=== PATIENT | female | born 1980 | race Caucasian/White ===

== ENCOUNTER → 2017-02-01 | Outpatient (CLI) | payer OTHER | LOC: FIMAGING 13:48 | PROVIDERS: ATTEND Obstetrics & Gynecology | DX: N92.0 Excessive and frequent menstruation with regular cycle (principal) ==

== ENCOUNTER → 2017-11-02 | Outpatient (CLI) | payer OTHER | LOC: FIMAGING 14:27 | PROVIDERS: ATTEND Obstetrics & Gynecology | DX: O09.521 Supervision of elderly multigravida, first trimester (principal); Z3A.12 12 weeks gestation of pregnancy ==

== ENCOUNTER → 2017-12-25 | Outpatient (CLI) | payer OTHER | LOC: FIMAGING 13:35 | PROVIDERS: ATTEND Obstetrics & Gynecology | DX: O09.522 Supervision of elderly multigravida, second trimester (principal); Z3A.19 19 weeks gestation of pregnancy ==

== ENCOUNTER → 2018-01-23 | Outpatient (CLI) | payer OTHER | LOC: FIMAGING 15:11 | PROVIDERS: ATTEND Obstetrics & Gynecology | DX: O09.522 Supervision of elderly multigravida, second trimester (principal); Z3A.23 23 weeks gestation of pregnancy ==

== ENCOUNTER 2018-05-10 00:02 | Inpatient (IN) | payer OTHER ==
[2018-05-10] MEDS ORDERED: EPSOM SALT 454 GM TP PRN (00:18)
[2018-05-10] MEDS ORDERED: LIDOCAINE 1% 300 MG/30 ML SDV SC PRN (00:18)
[2018-05-10] MEDS ORDERED: OXYTOCIN/RINGERS LACTATE 1,000 ML IV PRN (00:18)
[2018-05-10] MEDS ORDERED: OLIVE OIL 118 ML BTL MISC PRN (00:18)
[2018-05-10] MEDS ORDERED: TERBUTALINE SULFATE 1 MG/ML VIAL IV PRN (00:18)
[2018-05-10] MEDS ORDERED: IBUPROFEN 600 MG TAB PO PRN (00:18)
[2018-05-10] MEDS ORDERED: MISOPROSTOL 200 MCG TAB PR PRN (00:18)
[2018-05-10] MEDS ORDERED: LR 1,000 ML IV PRN (00:18)
[2018-05-10 01:19] LABS: PLATELET COUNT 255 10^3/uL (150-400)
[2018-05-10] MEDS ORDERED: fentaNYL 100 MCG/2 ML INJ ONE (01:59)
[2018-05-10] MEDS ORDERED: BUPIVACAINE 0.25% 30 ML SDV ONE (02:00)
[2018-05-10] MEDS ORDERED: PHENYLEPHRINE HCL 100 MCG/ML SYR ONE (02:00)
[2018-05-10] MEDS ORDERED: PHENYLEPHRINE HCL 100 MCG/ML SYR IVP PRN (02:25)
[2018-05-10] MEDS ORDERED: ONDANSETRON 4 MG/2 ML VIAL IVP PRN (02:25)
--- NOTE | 2018-05-10 02:27 | PREANESOB ---
Obstetric Pre-Anesthesia Info - General Info Proposed Procedure: LILIA : 2 Para: 1 HORACIO: 05/17/18 Gestational Age: 39 week(s) and 0 day(s) - Info Status: Full Term Monitors: External FHR Pattern: Reassuring - Labor Status Cervical Dilation per last OB SVE: 4 Amniotic Fluid Color: Clear PIH: No Magnesium Sulfate in Use: No Indications for Labor Analgesia: Augmentation of Labor Labor Epidural: Proposed Anesthesia Allergies/Adverse Reactions: Allergy/AdvReac Type Severity Reaction Status Date / Time Penicillins Allergy Verified 09/20/15 18:56 reishi mushroom [mushrooms] Allergy Verified 09/20/15 18:56 SEAFOOD Allergy Uncoded 09/20/15 18:56 SEAWEED Allergy Uncoded 09/20/15 18:56 STEROID Allergy Uncoded 09/20/15 18:56 Home Medications: Medication Instructions Recorded Folic Acid [Folic Acid 1 MG (*)] 1 mg PO DAILY 06/21/16 Vit27&Calcium/Iron/FA 1 each PO DAILY 06/21/16 [] Hydrocodone/APAP 5/325 [[place] 1 - 2 tab PO Q4 PRN #30 tab 06/28/16 5/325 (*)] Ibuprofen [Motrin (*)] 600 mg PO Q6 PRN #40 tab 06/28/16 Visit Medications: Generic Name Dose Route Start Last Admin Trade Name Freq PRN Reason Stop Dose Admin Lactated Ringer's 1,000 mls @ 0 mls/hr 05/10/18 00:18 Lr IV 05/11/18 00:17 PRN PRN SEE PROTOCOL CONDITIONS Protocol Per Protocol Oxytocin/Lactated Ringer's 1,000 mls @ 125 mls/hr 05/10/18 00:18 Pitocin 20 Units/Lr (Premix) IV PRN PRN Post bleeding Fentanyl 200 mcg/ Bupivacaine 124 mls @ 0 mls/hr 05/10/18 02:30 HCl 20 ml/ Sodium Chloride EP 05/20/18 02:29 CONT SOO Protocol As Directed Ibuprofen 600 mg 05/10/18 00:18 Motrin PO ONCE PRN post , pain Lidocaine HCl 300 mg 05/10/18 00:18 Lidocaine Hcl 1% SC 11/06/18 00:17 ONCE PRN episiotomy Magnesium Sulfate 454 gm 06/14/18 00:18 Epsom Salt TP 11/06/18 00:17 Q1H PRN perineal discomfort Misoprostol 800 - 1,000 mcg 05/10/18 00:18 Cytotec LA ONCE PRN Vaginal Atony/Bleeding [place] Oil 118 ml 05/10/18 00:18 Sweet Oil MISC 11/06/18 00:17 ONCE PRN perineal massage Terbutaline Sulfate 0.25 mg 05/10/18 00:18 Brethine IV 11/06/18 00:17 ONCE PRN Tachysystole Discontinued Medications Generic Name Dose Route Start Last Admin Trade Name Malik PRN Reason Stop Dose Admin Bupivacaine HCl Confirm 05/10/18 02:00 Sensorcaine 0.25% Sdv Administered 05/10/18 02:01 Dose 30 ml .ROUTE .STK-MED ONE Fentanyl Confirm 05/10/18 01:59 Sublimaze Administered 05/10/18 02:00 Dose 100 mcg .ROUTE .STK-MED ONE Fentanyl 200 mcg/ Bupivacaine 117.3 mls @ 0 mls/hr 05/10/18 02:30 HCl 13.3 ml/ Sodium Chloride EP 05/20/18 02:29 CONT SOO Protocol As Directed Phenylephrine HCl Confirm 05/10/18 02:00 Neosynephrine Administered 05/10/18 02:01 Dose 1,000 mcg .ROUTE .STK-MED ONE - Anesthesia History Response to Local Anesthetics: Normal Anesthesia & Operative History: No Prior Problems Family Anesthesia History: Not Applicable - Social History Substance Use/Abuse: Denies - Vital Signs Height/Weight (Nursing): Height 170.18 cm Weight 89.358 kg - Focused Exam Neck exam: FROM Mallampati Score: Class 2 Mouth exam: normal dental/mouth exam Pulmonary: no respiratory distress Cardiovascular: regular rate and rhythym Labs: 05/10/18 00:45 Patient ABO/Rh O POSITIVE 05/10/18 00:45 - Plan Consent Signed and on Chart: Yes Patient/Guardian Understands and Agrees to Plan: Yes Urgent/Emergent Case: Feelcia fontanez completed preop but documented later for safe timely pt care
[2018-05-10] MEDS ORDERED: fentaNYL 2MCG/ML/BUP 0.1% RTU 100 ML EP SCH (02:30)
[2018-05-10] MEDS ORDERED: fentaNYL 200 MCG, BUPIVACAINE 0.5% 20 ML in NS 100 ML EP SCH (02:30)
[2018-05-10] MEDS ORDERED: BUPIVACAINE 0.75% EP SCH (02:30)
[2018-05-10] MEDS ORDERED: LR 500 ML IV SCH (02:30)
[2018-05-10] MEDS ORDERED: FENTANYL EP SCH (02:30)
[2018-05-10] MEDS ORDERED: NS EP SCH (02:30)
[2018-05-10] MEDS ORDERED: LIDOCAINE 1% 300 MG/30 ML SDV ONE (02:32)
[2018-05-10] MEDS ORDERED: AMMONIA AROMATIC 1 EACH AMP IH ONE (02:33)
[2018-05-10] MEDS ORDERED: MISOPROSTOL 200 MCG TAB ONE (02:33)
[2018-05-10] MEDS ORDERED: OLIVE OIL 118 ML BTL ONE (02:33)
[2018-05-10] MEDS ORDERED: TERBUTALINE SULFATE 1 MG/ML VIAL ONE (02:33)
[2018-05-10] MEDS ORDERED: OXYTOCIN 10 UNIT/ML VIAL ONE (02:33)
--- NOTE | 2018-05-10 02:46 | GHP ---
[f rep st] PREOP HISTORY AND PHYSICAL DATE OF ADMISSION: 05/10/2018 ADMISSION DIAGNOSES: 1. Intrauterine at 39 weeks gestation. 2. Active labor. INDICATIONS: Patient is a 38-year-old 2, para 1-0-0-1 at 39 weeks gestation. Her estimated date of confinement is 05/17/2018, dated by last menstrual period consistent with a 1st-trimester ultrasound. The patient received care with [facility]. She was going to be transferred to [facility] tomorrow and has an appointment scheduled. However, she progressed into active labor tonight and presented to [facility] for delivery. The patient received care with [facility] with her last ; however, was delivered by our practice due to shared call. 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 PAST MEDICAL HISTORY: Significant for history of colon ulcers in her 20s, history of abnormal Pap smears, history of vitamin B12 deficiency. MEDICATIONS: vitamins. SURGICAL HISTORY: None. ALLERGIES: Penicillin, which causes GI upset and rash. SOCIAL HISTORY: Patient is . She lives with her and their 1st child. She denies tobacco, alcohol, or drug use. FAMILY MEDICAL HISTORY: Noncontributory. OBSTETRIC/GYNECOLOGIC HISTORY: She is 2, para 1-0-0-1. In 05/2016, she had a spontaneous vaginal delivery. She presented in active labor. The labor course was complicated by difficulties getting the epidural, and baby delivered with nuchal cord x2. Otherwise, and delivery were uncomplicated. Current has been uncomplicated. She initiated care at [facility] in the 1st trimester. Patient does have a history of abnormal Pap smears and colposcopies, but no procedures were done on her cervix. PHYSICAL EXAMINATION: VITAL SIGNS: Stable. GENERAL APPEARANCE: Alert and oriented x3. HEART: Rate is regular, regular. LUNGS: Clear to auscultation bilaterally. ABDOMEN: Gravid, nondistended, nontender. EXTREMITIES: Reveal no calf tenderness or edema. NEURO: Grossly intact. PSYCH: Appropriate affect. MUSCULOSKELETAL: Grossly intact. Cervical exam, she was 3-4 cm dilated, 100% effaced, and -2 station. She spontaneously ruptured upon arriving to Labor and Delivery. LABS: Blood type O positive. Antibody screen negative. Rubella immune. HBsAg negative. Her 50 g glucose was 93. Her group beta strep culture was negative. REVIEW OF SYSTEMS: A 10-point review of systems is negative with exception of the above-mentioned pertinent positives. ASSESSMENT AND PLAN: A 38-year-old 2, para 1-0-0-1 who is 39 weeks gestation who arrived in active labor. The patient is requesting epidural. /[id number]/MODL MTDD
--- NOTE | 2018-05-10 03:01 | OBPROG ---
Labor Progress Note Assessment/Plan: Assessment: Plan: Subjective/Intrapartum Course: 05/10/18 02:57 patient got epidural but it did not work. rapid progress to complete. AROM at complete. large amount of clear fluid. pushed x 4 contractions. fhts in 70's. delivered over an intact perineum. Objective: 05/10/18 00:45 Patient ABO/Rh O POSITIVE 05/10/18 00:45 - SVE Dilation (cm): 10 Effacement (%): 100 Station: +3 Membranes: AROM Amniotic Fluid Color: Clear Dilation Complete Date: 05/10/18 - Contraction Pattern Assessment Current Contraction Pattern: Regular - FHR Assessment Dent FHR Pattern Variability: Moderate FHR Category: 1 - Procedures Non-surgical Procedures: Amniotomy - AP Antepartum Course: 05/10/18 02:59 [facility] delivered by fede spain when we shared call. current initiated care with [facility]. planned to transfer to [facility] (has appointment in am) but came in in active labor. initiated care in first trimester. uncomplicated . Oxytocin Orders Assessment - Pre-Induction/Augmentation Assessment Gestational Age: 39 week(s) and 0 day(s) ICD10 Worksheet Patient Problems: Problems Problem Status Onset Normal labor Acute
--- NOTE | 2018-05-10 03:04 | OBDEL ---
Info Type: Vaginal Presentation at Delivery: Vertex L&D Analgesia/Anesthesia Type: Epidural (did not work) GBS+: No Intrapartum Medications: Generic Name Dose Route Start Last Admin Trade Name Malik PRN Reason Stop Dose Admin Lactated Ringer's 1,000 mls @ 0 mls/hr 05/10/18 00:18 05/10/18 00:47 Lr IV 05/11/18 00:17 1,000 mls PRN PRN Administration SEE PROTOCOL CONDITIONS Protocol Per Protocol Lactated Ringer's 500 mls @ 0 mls/hr 05/10/18 02:30 05/10/18 02:31 Lr IV 11/06/18 02:29 500 mls CONT SOO Administration As Directed - Hospital Course Intrapartum: 05/10/18 02:57 patient got epidural but it did not work. rapid progress to complete. AROM at complete. large amount of clear fluid. pushed x 4 contractions. fhts in 70's. delivered over an intact perineum. Indications for Delivery: Spontaneous Labor Vaginal Delivery - Delivery Provider Delivery Physician/CNM: Li Avery - Labor and Delivery Onset of Contractions Date: 05/09/18 Onset of Contractions Time: 21:00 Onset of Contractions Type: Spontaneous Rupture of Membranes Date: 05/10/18 Rupture of Membranes Time: 01:10 Rupture of Membranes Type: Artificial Amniotic Fluid Color: Clear Dilation Complete Date: 05/10/18 Dilation Complete Time: 02:40 Placenta Delivery Date: 05/10/18 Placenta Delivery Time: 02:49 Total Hours of Labor: 5 Non-surgical Procedures: Amniotomy Vaginal Sponge Count Correct: Yes Vaginal Needle Count Correct: Yes Vaginal Sweep Performed: Yes Delivery Events: Nuchal Cord (x2) Delivery Comment: arrived in active labor. anesthesia placed epidural which did not work. rapid progress to complete. arom at complete. pushed x 4 contractions. Data HORACIO: 05/17/18 Gestational Age: 39 week(s) and 4 day(s) Dent Delivery Date: 05/10/18 Delivery Time: 02:43 Sex of : Male Score (1 Min): 8 Score (5 Min): 9 ICD10 Worksheet Patient Problems: Problems Problem Status Onset Dizziness Acute state Acute Shortness of breath Acute Symptomatic bradycardia Acute Delivery normal Acute Normal labor Acute - ICD10 Problem Qualifiers (1) Delivery normal
--- NOTE | 2018-05-10 03:17 | POSTANESTH ---
Post Anesthetic Evaluation Cardiovascular Status: Normal, Stable, Tx Over/Under Hydration Level of Consciousness/Mental Status: Can Participate in Eval Pain Control: Adequate, Prn Tx Ordered Nausea/Vomiting Control: Adequate, Prn Tx Ordered Complications Possibly Related to Anesthesia: None Noted (epidural d/c'd)
[2018-05-10] MEDS: IBUPROFEN 600 MG TAB PO PRN ×3 (09:00→22:16)
[2018-05-10] MEDS ORDERED: IBUPROFEN 600 MG TAB PO ONE (09:13)
[2018-05-10] MEDS ORDERED: DOCUSATE SODIUM 100 MG CAP PO PRN (10:46)
[2018-05-10] MEDS ORDERED: HYDROCORTISONE 0.5% CREAM TP PRN (10:46)
[2018-05-10] MEDS ORDERED: SIMETHICONE 80 MG TAB CHEW PO PRN (10:46)
[2018-05-10] MEDS: HYDROCODONE/APAP 5/325 TAB PO PRN ×3 (11:14→19:36)
--- NOTE | 2018-05-10 14:51 | POSTANESTH ---
Post Anesthetic Evaluation Cardiovascular Status: Normal, Stable Respiratory Status: Normal, Stable Level of Consciousness/Mental Status: Can Participate in Eval Pain Control: Adequate, Prn Tx Ordered Nausea/Vomiting Control: Adequate, Prn Tx Ordered Complications Possibly Related to Anesthesia: None Noted (pt had incomplete epidural anesthesia R>L, ambulating ok today, no apparent complications)
[2018-05-10] MEDS ORDERED: PROCHLORPERAZINE MALEATE 10 MG TAB PO PRN (21:12)
--- NOTE | 2018-05-10 21:12 | OBPP ---
Progress Note Assessment/Plan: Assessment: 38yo s/p VSS PPD#0 Dizziness headache Plan: rx compazine ordered CBC/CMP/EKG ordered encouraged pt to cont hydrating, add electrolyte replacement reassess PRN 05/10/18 21:51 Subjective/ Course: 05/10/18 21:47 Pt doing ok- states she does not feel great. Reports +dizziness, that is improving. She reports having episodes of chest pain x2 days. She denies any SOB , epigastric pain. She states she felt like she may "pass out". She reports having headaches all day today. She has not had complete relief with ibuprofen and norco. She denies any heavy bleeding. Objective: 05/10/18 00:45 Patient ABO/Rh O POSITIVE 05/10/18 00:45 Temp Pulse Resp BP Pulse Ox 36.1 C 77 16 103/67 05/10/18 15:44 05/10/18 15:44 05/10/18 15:44 05/10/18 15:44 Uterine Position/Fundal Height: Umbilicus -1, Midline Uterine Tone: Firm Physical Exam - Physical Exam General Appearance: WD/WN, alert, no apparent distress Respiratory: chest non-tender, lungs clear, normal breath sounds Cardiac/Chest: regular rate, rhythm Abdomen: non-tender, soft Extremities: non-tender Skin: normal color, warm/dry Neuro/Psych: alert, normal mood/affect, oriented x 3
--- NOTE | 2018-05-10 21:54 | CPEKG ---
Heart Rate: 61 RR Interval: 984 P-R Interval: 160 QRSD Interval: 96 QT Interval: 388 QTC Interval: 391 P [place]: 23 QRS [place]: 50 T Wave [place]: 52 EKG Severity - NORMAL ECG - EKG Impression: SINUS RHYTHM Electronically Signed By: Tone Grant 11-May-2018 17:12:59
[2018-05-11] MEDS: ACETAMINOPHEN 325 MG TAB PO PRN ×2 (01:32→12:58)
[2018-05-11] MEDS ORDERED: CYCLOBENZAPRINE 10 MG TAB PO PRN (02:13)
[2018-05-11] MEDS: IBUPROFEN 600 MG TAB PO PRN (04:15)
--- NOTE | 2018-05-11 11:14 | OBPP ---
Progress Note Assessment/Plan: Assessment: 1) s/p PPD # 1 - pt is stable 2) Anemia - pt is asymptomatic Plan: Continue routine pp care Will start Bifera BID Plan for d/c home in am 16 05/11/18 11:12 Subjective/ Course: 05/10/18 21:47 Pt doing ok- states she does not feel great. Reports +dizziness, that is improving. She reports having episodes of chest pain x2 days. She denies any SOB , epigastric pain. She states she felt like she may "pass out". She reports having headaches all day today. She has not had complete relief with ibuprofen and norco. She denies any heavy bleeding. 05/11/18 11:13 Pt seen and examined. Doing much better-no further HAs, dizziness or CP. Some mild cramping, controlled with Motrin. None this am. Mod lochia. She is OOB, ella regular diet, voiding and passing flatus. No BM yet. BF well so far. Objective: 05/10/18 21:30 05/10/18 21:30 Patient ABO/Rh O POSITIVE 05/10/18 00:45 Total Bilirubin 0.4 mg/dL (0.1-1.4) 05/10/18 21:30 AST 32 IU/L (14-46) 05/10/18 21:30 ALT 28 IU/L (9-52) 05/10/18 21:30 Temp Pulse Resp BP Pulse Ox 36.7 C 71 16 107/72 94 05/11/18 08:00 05/11/18 08:00 05/11/18 08:00 05/11/18 08:00 05/11/18 03:30 Uterine Position/Fundal Height: Umbilicus -2 Uterine Tone: Firm Physical Exam - Physical Exam General Appearance: WD/WN, alert, no apparent distress Respiratory: lungs clear, normal breath sounds Cardiac/Chest: regular rate, rhythm Abdomen: normal bowel sounds, non-tender, soft, flatus (+) Extremities: non-tender, normal inspection Skin: normal color, warm/dry Neuro/Psych: alert, normal mood/affect, oriented x 3
[2018-05-11] MEDS: IRON POLYSAC/IRON HEME 28 MG TAB PO SCH ×2 (13:02→22:41)
[2018-05-12 08:57] VITALS: BP 109/72
[2018-05-12] MEDS: IRON POLYSAC/IRON HEME 28 MG TAB PO SCH (09:11)
--- NOTE | 2018-05-12 10:19 | OBGCSDC ---
General Delivery Information - General Info : 2 Para: 2 Abortions: 0 Type: Vaginal L&D Analgesia/Anesthesia Type: Epidural Admission Date: 05/10/18 Labs: Patient ABO/Rh O POSITIVE 05/10/18 00:45 Hct 35.5 % (38.0-47.0) L 05/10/18 21:30 - Hospital Course Antepartum: 05/10/18 02:59 [facility]. delivered by fede spain when we shared call. current initiated care with [facility]. planned to transfer to [facility] (has appointment in am) but came in in active labor. initiated care in first trimester. uncomplicated . Intrapartum: 05/10/18 02:57 patient got epidural but it did not work. rapid progress to complete. AROM at complete. large amount of clear fluid. pushed x 4 contractions. fhts in 70's. delivered over an intact perineum. : 05/10/18 21:47 Pt doing ok- states she does not feel great. Reports +dizziness, that is improving. She reports having episodes of chest pain x2 days. She denies any SOB , epigastric pain. She states she felt like she may "pass out". She reports having headaches all day today. She has not had complete relief with ibuprofen and norco. She denies any heavy bleeding. 05/11/18 11:13 Pt seen and examined. Doing much better-no further HAs, dizziness or CP. Some mild cramping, controlled with Motrin. None this am. Mod lochia. She is OOB, ella regular diet, voiding and passing flatus. No BM yet. BF well so far. 05/12/18 10:16 S) Pt doing well, reports min pain and bleeding. she is ambulating and voiding without difficulty. She is . She desires discharge home today. O) VSS, afebrile, no concerns - no headaches constitutional: WNWF, A&Ox3 HEENT: normocephalic, atraumatic, supple Heart: RRR, No murmur Chest: CTA-B Abdomen: Soft, nontender Uterus: Firm at U-2 Lochia: Minimal rubra Perineum: Intact, healing well Extremities: Trace edema, and negative Blake's sign Neuro: Grossly normal A) 38 year-old S/P PPD#2 P) Discharge home today Continue Pelvic rest x6wks Discussed danger signs (infection, preeclampsia, depression, heavy bleeding, etc) RTO in 2/4/6 weeks 05/12/18 10:18 Vaginal - Delivery Provider Delivery Physician/CNM: Li Spain - Diagnosis Labor: Spontaneous Rupture of Membranes Type: Artificial Amniotic Fluid Color: Clear Delivery Events: Nuchal Cord (x2) - Procedures Non-surgical Procedures: Amniotomy - Delivery Non-surgical Procedures: Amniotomy Data HORACIO: 05/17/18 Gestational Age: 39 week(s) and 2 day(s) Dent Delivery Date: 05/10/18 Delivery Time: 02:43 Sex of : Male Weight (gm): 3620 g Score (1 Min): 8 Score (5 Min): 9 Discharge Information - Discharge Information Prescriptions: Iron Polysacch/Iron Heme Polyp [Bifera] 28 mg PO DAILY #60 tab Condition: Good
== END 2018-05-12 10:40 | disposition home or self-care (01) | DRG 775 ==
LOC: OBSVTOIN 00:02 → FLD 00:02 → FOB 06:30
PROVIDERS: ADMIT Obstetrics & Gynecology; ATTEND Obstetrics & Gynecology
PROC: 10907ZC Drainage of Amniotic Fluid, Therapeutic from Products of Conception, Via Natural or Artificial Opening (ICD-10-PCS; principal; 2018-05-10)
PROC: 10E0XZZ Delivery of Products of Conception, External Approach (ICD-10-PCS; principal; 2018-05-10)
DX: O69.81X0 Labor and delivery complicated by cord around neck, without compression, not applicable or unspecified (principal); O90.81 Anemia of the puerperium; Z3A.39 39 weeks gestation of pregnancy; Z37.0 Single live birth
CPT/HCPCS: J1200; J2370; J2405; J2590; J3010; J3105

== ENCOUNTER 2018-05-14 00:19 | Observation (INO) | payer OTHER ==
--- NOTE | 2018-05-14 00:45 | CPEKG ---
Heart Rate: 65 RR Interval: 923 P-R Interval: 172 QRSD Interval: 86 QT Interval: 392 QTC Interval: 408 P [place]: 20 QRS [place]: 44 T Wave [place]: 49 EKG Severity - NORMAL ECG - EKG Impression: SINUS RHYTHM Electronically Signed By: Linda Ling 14-May-2018 05:47:23
[2018-05-14 01:00] LABS: PLATELET COUNT 290 10^3/uL (150-400)
--- NOTE | 2018-05-14 01:40 | EDPHY ---
H & P Stated Complaint: SOB, dizzy, bilateral leg tingling x1 hour Time Seen by Provider: 05/14/18 01:26 HPI/ROS: HPI The patient presents with shortness of breath. The patient is 4 days from a normal spontaneous vaginal delivery. Her was uncomplicated. While in the hospital, she had 1 episode of shortness of breath and chest pains which occurred while lying flat on the 1st day. Since her discharge from the hospital yesterday she has had similar episodes. When she recalls, she realizes that the episodes usually occur while lying flat and cause shortness of breath and the sensation that she cannot catch her breath. They are associated with generally feeling ill and dizzy. She has a woken from sleep, feeling as if she is choking. An episode occurred tonight while she was trying to go to sleep, now her symptoms have mostly resolved. These are associated often with tingling in her arms and legs bilaterally. She generally feels hot. She denies any dyspnea on exertion. She recalls 1 episode about 2 weeks ago which was similar. She does not have any lower extremity edema. REVIEW OF SYSTEMS Constitutional: No fever, no chills. Eyes: No discharge. ENT: No sore throat. Cardiovascular: No chest pain, no palpitations. Respiratory: No cough, positive for shortness of breath. Gastrointestinal: No abdominal pain, no vomiting. Genitourinary: No hematuria. Musculoskeletal: No back pain. Skin: No rashes. Neurological: No headache. PMHx: , 4 days Soc Hx: Lives at home with her family Family history: Father with AR at age 51 PHYSICAL General Appearance: Alert, no distress Eyes: Pupils equal and round no pallor or injection ENT, Mouth: Mucous membranes moist Respiratory: There are no retractions, lungs are clear to auscultation Cardiovascular: Regular rate and rhythm Gastrointestinal: Abdomen is soft and non-tender, no masses, bowel sounds normal Neurological: A&O, moves all extremities Skin: Warm and dry, no rashes Musculoskeletal: Neck is supple non tender Extremities: symmetrical, full range of motion Psychiatric: Patient is oriented X 3, there is no agitation Source: Patient Exam Limitations: No limitations - Personal History Current Tetanus/Diphtheria Vaccine: Yes Tetanus Vaccine Date: 04/2015 - Medical/Surgical History Hx Asthma: No Hx Chronic Respiratory Disease: No Hx Diabetes: No Hx Cardiac Disease: No Hx Renal Disease: No Hx Cirrhosis: No Hx Alcoholism: No Hx HIV/AIDS: No Hx Splenectomy or Spleen Trauma: No Other PMH: COLPOSCOPY 2006, NVSD 2016 - Social History Smoking Status: Never smoked Constitutional: Initial Vital Signs Temperature (C) 36.4 C 05/14/18 00:26 Heart Rate 69 05/14/18 00:26 Respiratory Rate 16 05/14/18 00:26 Blood Pressure 108/78 05/14/18 00:26 O2 Sat (%) 97 05/14/18 00:26 O2 Delivery Mode Room Air Allergies/Adverse Reactions: Penicillins Allergy (Verified 09/20/15 18:56) reishi mushroom [mushrooms] Allergy (Verified 09/20/15 18:56) SEAFOOD Allergy (Uncoded 09/20/15 18:56) SEAWEED Allergy (Uncoded 09/20/15 18:56) STEROID Allergy (Uncoded 09/20/15 18:56) Home Medications: Medication Instructions Recorded Iron Polysacch/Iron Heme Polyp 28 mg PO DAILY #60 tab 05/12/18 [Bifera] Medical Decision Making - Diagnostics EKG Interpretation: EKG: Complete interpretation has been separately recorded in the [email or web address] archive. Summary impression: Normal sinus rhythm Imaging Results: Chest x-ray two views shows no cardiomegaly, no pleural effusion, interpreted by me, radiology interpretation is pending. Differential Diagnosis: This is a 38-year-old , 4 days from a normal spontaneous vaginal delivery who presents from home with episodes of shortness of breath associated with general malaise, dizziness, paresthesias in her arms and legs. On exam, she has normal vital signs and is generally well-appearing. Differential diagnosis includes cardiomyopathy, pulmonary embolism, GERD, vasovagal episode. No hypertension or headache make preeclampsia or eclampsia unlikely. Plan for basic lab testing, chest x-ray, EKG. In the emergency department, labs were checked, D-dimer was slightly elevated though I attribute this to state. BNP is also slightly elevated, however unclear clinical significance in the setting of normal chest x-ray and EKG. Other labs were normal. The patient did have worsening symptoms when her heart rate was below 50. On telemetry monitoring here she always maintained a sinus rhythm without any signs of heart block or arrhythmia. I consulted with Dr. Cid of OBGYN. We have decided to admit the patient to the hospital for ongoing cardiac monitoring and further evaluation with possibly echocardiogram. I have consulted with the hospitalist Dr. Fragoso and we will admit the patient to the Internal Medicine service with OBGYN following. I have ordered the patient a bed in the hospital. - Data Points Laboratory Results: Laboratory Results 05/14/18 00:54 05/14/18 00:54 05/14/18 05/14/18 05/14/18 01:38 00:58 00:58 WBC RBC Hgb Hct MCV MCH MCHC RDW Plt Count MPV Neut % (Auto) Lymph % (Auto) Millard % (Auto) Eos % (Auto) Baso % (Auto) Nucleat RBC Rel Count Absolute Neuts (auto) Absolute Lymphs (auto) Absolute Monos (auto) Absolute Eos (auto) Absolute Basos (auto) Absolute Nucleated RBC Immature Gran % Immature Gran # D-Dimer 0.56 ug/mLFEU H ug/mLFEU (0.00-0.50) Sodium Potassium Chloride Carbon Dioxide Anion Gap BUN Creatinine Estimated GFR Glucose Calcium Total Bilirubin 0.7 mg/dL mg/dL (0.1-1.4) Conjugated Bilirubin 0.4 mg/dL mg/dL (0.0-0.5) Unconjugated Bilirubin 0.3 mg/dL mg/dL (0.0-1.1) AST 40 IU/L IU/L (14-46) ALT 38 IU/L IU/L (9-52) Alkaline Phosphatase 118 IU/L IU/L (38-126) POC Troponin I 0.01 ng/mL ng/mL (0.00-0.08) NT-Pro-B Natriuret Pep 164 pg/mL H pg/mL (0-125) Total Protein 6.2 g/dL L g/dL (6.3-8.2) Albumin 3.4 g/dL L g/dL (3.5-5.0) TSH 05/14/18 05/14/18 05/14/18 00:54 00:54 00:54 WBC 10.32 10^3/uL H 10^3/uL (3.80-9.50) RBC 4.00 10^6/uL L 10^6/uL (4.18-5.33) Hgb 12.6 g/dL g/dL (12.6-16.3) Hct 37.5 % L % (38.0-47.0) MCV 93.8 fL fL (81.5-99.8) MCH 31.5 pg pg (27.9-34.1) MCHC 33.6 g/dL g/dL (32.4-36.7) RDW 13.0 % % (11.5-15.2) Plt Count 290 10^3/uL 10^3/uL (150-400) MPV 9.3 fL fL (8.7-11.7) Neut % (Auto) 61.8 % % (39.3-74.2) Lymph % (Auto) 30.2 % % (15.0-45.0) Millard % (Auto) 4.7 % % (4.5-13.0) Eos % (Auto) 2.4 % % (0.6-7.6) Baso % (Auto) 0.6 % % (0.3-1.7) Nucleat RBC Rel Count 0.0 % % (0.0-0.2) Absolute Neuts (auto) 6.38 10^3/uL 10^3/uL (1.70-6.50) Absolute Lymphs (auto) 3.12 10^3/uL H 10^3/uL (1.00-3.00) Absolute Monos (auto) 0.48 10^3/uL 10^3/uL (0.30-0.80) Absolute Eos (auto) 0.25 10^3/uL 10^3/uL (0.03-0.40) Absolute Basos (auto) 0.06 10^3/uL 10^3/uL (0.02-0.10) Absolute Nucleated RBC 0.00 10^3/uL 10^3/uL (0-0.01) Immature Gran % 0.3 % % (0.0-1.1) Immature Gran # 0.03 10^3/uL 10^3/uL (0.00-0.10) D-Dimer Sodium 142 mEq/L mEq/L (135-145) Potassium 3.8 mEq/L mEq/L (3.3-5.0) Chloride 110 mEq/L mEq/L (97-110) Carbon Dioxide 19 mEq/l L mEq/l (22-31) Anion Gap 13 mEq/L mEq/L (8-16) BUN 14 mg/dL mg/dL (7-23) Creatinine 0.7 mg/dL mg/dL (0.6-1.0) Estimated GFR > 60 Glucose 81 mg/dL mg/dL (70-100) Calcium 9.6 mg/dL mg/dL (8.5-10.4) Total Bilirubin Conjugated Bilirubin Unconjugated Bilirubin AST ALT Alkaline Phosphatase POC Troponin I NT-Pro-B Natriuret Pep Total Protein Albumin TSH 1.490 uIU/mL uIU/mL (0.465-4.680) Point of Care Test Results: Chemistry 05/14/18 01:38 POC Troponin I 0.01 ng/mL ng/mL (0.00-0.08) Departure - Departure Disposition: [facility] Inpatient Acute Clinical Impression: Shortness of breath, Symptomatic bradycardia, Dizziness, state Condition: Fair
[2018-05-14] MEDS ORDERED: IBUPROFEN 200 MG TAB PO PRN (03:36)
--- NOTE | 2018-05-14 04:06 | PDGENHP ---
History and Physical - Chief Complaint Presyncope - History of Present Illness Source-patient provides history and appears reliable. EMR was reviewed and case discussed with ED provider. HPI-this is a very pleasant 38-year-old female with past no significant past medical history who recently delivered a healthy term infant boy she is day 4. Patient presents emergency department with complaints of lightheadedness and low heart rate. Patient has been quite athletic her whole life and reports that her baseline heart rate is generally in the 60s. She states that she has not been as active during this compared to her last and sore heart rate generally has been a little bit higher. Patient denies any chest pain or palpitations. She reports that primarily when she goes to lay flat she becomes lightheaded, shaky, with radiating numbness tingling in her fingers and hands, but overall feeling quite unwell. She reports some nausea with some blurry vision. Patient also notes that during this these episodes she developed some shortness of breath. She does not seem to have any issues or symptoms when she is sitting upright or ambulating. Patient denies any lower extremity edema or calf pain or swelling. She does report that just since her time in the emergency department she did develop a little bit of epigastric sharp intermittent pains worse with palpation but denies any reflux type symptoms. She reports the pain does radiate to her shoulder blades. She did not have this pain previously. Patient does report some lower abdominal stretching type pain she associates with her recent delivery due to muscle soreness. Patient denies any fevers chills. No cough dysuria hematuria. History Information - Allergies/Home Medication List Allergies/Adverse Reactions: Penicillins Allergy (Verified 09/20/15 18:56) reishi mushroom [mushrooms] Allergy (Verified 09/20/15 18:56) SEAFOOD Allergy (Uncoded 09/20/15 18:56) SEAWEED Allergy (Uncoded 09/20/15 18:56) STEROID Allergy (Uncoded 09/20/15 18:56) I have personally reviewed and updated: family history, medical history, social history, surgical history - Surgical History Reports: no pertinent surgical hx - Family History Additional family history: Father-history CAD age 51 status post CABG, HTN, HLD. Paternal grandmother with hypertension. Paternal grandfather with history TX at a young age. Maternal grandmother with history CVA at elderly age in the 90s. - Social History Smoking Status: Never smoked Alcohol Use: None Drug Use: None Additional social history: Patient is and lives with her and 2 children. Cor status-full Review of Systems Review of Systems: ROS: 10pt was reviewed & negative except for what was stated in HPI & below Constitutional: Reports: weakness (Generalized weakness during episodes.). Denies: chills, fever EENMT: Reports: no symptoms Cardiac: Reports: syncope. Denies: chest pain, edema Respiratory: Reports: shortness of breath (During episodes). Denies: cough Gastrointestinal: Reports: abdominal pain (See HPI), nausea. Denies: black stools, rectal bleeding, diarrhea Genitourinary: Reports: no symptoms Muscolosketal: Reports: no symptoms. Denies: calf pain Skin: Reports: no symptoms Neurological: Reports: numbness, tingling (In her fingers and hand), weakness ( Generalized weakness during episode). Denies: headache Hematologic/Lymphatic: Reports: no symptoms. Denies: blood clots Physical Exam Physical Exam: Temp Pulse Resp BP Pulse Ox 36.4 C 78 18 112/87 H 96 05/14/18 00:26 05/14/18 03:30 05/14/18 03:30 05/14/18 03:30 05/14/18 03:30 Selected Entries 05/14/18 05/14/18 00:26 03:59 Blood Pressure Automatic Method Heart Rate 69 Heart Rate [ 78 Sitting] Heart Rate [ 94 Standing] Heart Rate [ 60 Supine] Respiratory 16 Rate O2 Sat (%) 97 Temperature (C) 36.4 C Blood Pressure 108/78 Blood Pressure 129/92 H [Sitting] Blood Pressure 125/83 H [Standing] Blood Pressure 123/75 H [Supine] Mean Arterial 88 Pressure (MAP) O2 Delivery Room Air Mode Blood Pressure Left Source [Sitting Upper ] Arm Blood Pressure Left Source [ Upper Standing] Arm Blood Pressure Left Source [Supine] Upper Arm Temperature Oral Source Heart Rate Heart Rate/ Source [Sitting Monitor ] Heart Rate Heart Rate/ Source [ Monitor Standing] Heart Rate Heart Rate/ Source [Supine] Monitor Constitutional: no apparent distress, appears nourished, not in pain, other ( NAD. Pleasant young adult female is sitting up in bed. and young children at bedside.) Eyes: PERRL, anicteric sclera, EOMI, No scleral injection Ears, Nose, Mouth, Throat: moist mucous membranes, ears appear normal, no oral mucosal ulcers, No poor dentition Cardiovascular: regular rate and rhythym, no murmur, rub, or gallop, No systolic murmur, No edema Peripheral Pulses: 2+: dorsalis-pedis (R), dorsalis-pedis (L) Respiratory: no respiratory distress, no rales or rhonchi, clear to auscultation , No respiratory distress Gastrointestinal: normoactive bowel sounds, no palpable masses, tenderness ( Patient with some minimal on tenderness the epigastric region. There is no rebound or guarding guarding. She also reports some discomfort with palpation on the lateral aspect of her lower abdomen which are relatively unchanged since delivery.) Genitourinary: no bladder tenderness, No solitario in urethra Skin: warm, normal color, no rashes or abrasions Musculoskeletal: full muscle strength, other (Patient sits up independently. Moves all extremities while in gurney.) Neurologic: AAOx3, sensation intact bilaterally, No facial droop Psychiatric: interacting appropriately, not anxious, not encephalopathic, thought process linear Lab Data & Imaging Review 05/14/18 00:54 05/14/18 00:54 WBC 10.32 10^3/uL (3.80-9.50) H 05/14/18 00:54 RBC 4.00 10^6/uL (4.18-5.33) L 05/14/18 00:54 Hgb 12.6 g/dL (12.6-16.3) 05/14/18 00:54 Hct 37.5 % (38.0-47.0) L 05/14/18 00:54 MCV 93.8 fL (81.5-99.8) 05/14/18 00:54 MCH 31.5 pg (27.9-34.1) 05/14/18 00:54 MCHC 33.6 g/dL (32.4-36.7) 05/14/18 00:54 RDW 13.0 % (11.5-15.2) 05/14/18 00:54 Plt Count 290 10^3/uL (150-400) 05/14/18 00:54 MPV 9.3 fL (8.7-11.7) 05/14/18 00:54 Neut % (Auto) 61.8 % (39.3-74.2) 05/14/18 00:54 Lymph % (Auto) 30.2 % (15.0-45.0) 05/14/18 00:54 [place] % (Auto) 4.7 % (4.5-13.0) 05/14/18 00:54 Eos % (Auto) 2.4 % (0.6-7.6) 05/14/18 00:54 Baso % (Auto) 0.6 % (0.3-1.7) 05/14/18 00:54 Nucleat RBC Rel Count 0.0 % (0.0-0.2) 05/14/18 00:54 Absolute Neuts (auto) 6.38 10^3/uL (1.70-6.50) 05/14/18 00:54 Absolute Lymphs (auto) 3.12 10^3/uL (1.00-3.00) H 05/14/18 00:54 Absolute Monos (auto) 0.48 10^3/uL (0.30-0.80) 05/14/18 00:54 Absolute Eos (auto) 0.25 10^3/uL (0.03-0.40) 05/14/18 00:54 Absolute Basos (auto) 0.06 10^3/uL (0.02-0.10) 05/14/18 00:54 Absolute Nucleated RBC 0.00 10^3/uL (0-0.01) 05/14/18 00:54 Immature Gran % 0.3 % (0.0-1.1) 05/14/18 00:54 Immature Gran # 0.03 10^3/uL (0.00-0.10) 05/14/18 00:54 D-Dimer 0.56 ug/mLFEU (0.00-0.50) H 05/14/18 00:58 Sodium 142 mEq/L (135-145) 05/14/18 00:54 Potassium 3.8 mEq/L (3.3-5.0) 05/14/18 00:54 Chloride 110 mEq/L (97-110) 05/14/18 00:54 Carbon Dioxide 19 mEq/l (22-31) L 05/14/18 00:54 Anion Gap 13 mEq/L (8-16) 05/14/18 00:54 BUN 14 mg/dL (7-23) 05/14/18 00:54 Creatinine 0.7 mg/dL (0.6-1.0) 05/14/18 00:54 Estimated GFR > 60 05/14/18 00:54 Glucose 81 mg/dL (70-100) 05/14/18 00:54 Calcium 9.6 mg/dL (8.5-10.4) 05/14/18 00:54 Total Bilirubin 0.7 mg/dL (0.1-1.4) 05/14/18 00:58 Conjugated Bilirubin 0.4 mg/dL (0.0-0.5) 05/14/18 00:58 Unconjugated Bilirubin 0.3 mg/dL (0.0-1.1) 05/14/18 00:58 AST 40 IU/L (14-46) 05/14/18 00:58 ALT 38 IU/L (9-52) 05/14/18 00:58 Alkaline Phosphatase 118 IU/L (38-126) 05/14/18 00:58 POC Troponin I 0.01 ng/mL (0.00-0.08) 05/14/18 01:38 NT-Pro-B Natriuret Pep 164 pg/mL (0-125) H 05/14/18 00:58 Total Protein 6.2 g/dL (6.3-8.2) L 05/14/18 00:58 Albumin 3.4 g/dL (3.5-5.0) L 05/14/18 00:58 Chest X-Ray results: no infiltrate, other (CXR - Some peribronchiolar prominence. No consolidations or effusions. Lungs otherwise clear.) Visualized and Interpreted EKG results: Yes EKG additional interpertation: NSR in the 60s. No acute ST changes. T-wave flattening in lead 3. T-wave inversion V1 V2. QTc 408. Nonspecific T-wave changes are new compared to EKG from 05/10/2018. Assessment & Plan Assessment: Pleasant 38-year-old female with history of baseline heartrate in the 60s who is otherwise healthy day 4 presents to the emergency department with complaints of recurrent episodes of lightheadedness, presyncope, bradycardia and dyspnea particularly with lying flat. 1. Presyncope-ddx including orthostasis, vasovagal response, cardiomyopathy, less likely tamponade or pericarditis. Orthostatic blood pressures were not significantly revealing. Her laboratory studies are relatively unremarkable given state. Patient with a minimally elevated D-dimer just over the upper limits of normal however this is likely to be elevated in the state which was discussed by ED provider and OB bath design sales consultant. Additionally patient without any hypoxia, tachycardia or calf pain tenderness so lower suspicion. Patient's neurologic exam is nonfocal. Patient reports good oral intake and hydration. Will check also blood pressures to rule out pulses paradoxus. Cardiac exam was normal without rubs or gallops. Will hold off on IV fluids as patient is hydrating well. Patient's H&H is slightly reduced but not surprising instead at setting of status. Continue with iron replacement after discharge. Will monitor patient on telemetry overnight along with pulse ox and if patient should have additional episode will try to correlate with blood pressures along with heart rate. TSH added and normal. 2. Dyspnea - as noted above. 3. Abdominal pain-patient notes new onset epigastric pain with tenderness to palpation. She reports pain is intermittent sharp stabbing and radiates to her back. She has had no nausea vomiting diarrhea fevers or chills. Currently patient pain is improved. Will plan to monitor recessed. 4. day for-patient is breast-feeding and pumping. 5. Anemia related to . 6. hypoalbuminemia - anticipated reduction and status. FEN - hold off on IV fluids as patient is tolerating oral hydration very well. Electrolytes not require any replacement at this time. Regular diet as tolerated. PPX-SCDs. Holding anticoagulation unless patient should stay additional day. Cor status-full Disposition patient admitted to observation status on PCU for close cardiac monitoring overnight. Patient's to take and other child home.
[2018-05-14] MEDS: ONDANSETRON 4 MG/2 ML VIAL IVP PRN ×3 (10:10→22:13)
[2018-05-14] MEDS: ACETAMINOPHEN 325 MG TAB PO PRN (10:10)
--- NOTE | 2018-05-14 13:14 | ASMTCMCOM ---
CM Note CM Note Notes: 05/14/2018 Case Management Note Discussed pt during rounds this morning. Pt was admiited for episodes of shortness of breath, dizziness and bradycardia. Pt recently gave . Her is here at bedside. There are no PT or OT evals ordered at this time. There are no case management d/c needs identified d/t pt age, marital status and independence in ADL's. Case Management d/c poc: independent. Date Signed: 05/14/2018 01:13 PM Electronically Signed By:Radha Posada RN
--- NOTE | 2018-05-14 13:35 | HOSPPROG ---
Hospitalist Progress Note Assessment/Plan: Daytime hospitalist rounds note Approximately 45 min was spent with this patient at the bedside today and in coordination of care with gynecology service in addition to the time spent previously by Dr. Man in during her admission visit. I did see the patient on both hospitalist rounds and multidisciplinary rounds on this unit today. DIAGNOSES: -near-syncope in the setting -chest pain and dyspnea -right leg pain in the popliteal area -bradycardia The patient does not appear to be bleeding, and has a normal TSH. My differential diagnosis for her at this time would include thromboembolic disease , Friedreichson/Waterhouse Syndrome with adrenal insufficiency, cardiac abnormalities including cardiomyopathy, though I think that most likely this will engine turner to be a vagal syndrome or similar near syncopal syndrome. At the moment I do not have anything specific that will help me differentiate these. PLANS: -gynecology consult is requested -echocardiogram done with result pending -I have ordered a ultrasound of the right leg to be certain she does not have DVT in the popliteal area causing the pain there, and may need to do CT scan of the chest to rule out PE if there is not DVT -Cortrosyn stimulation testing -continue cardiac monitoring at this time SUBJECTIVE: Continues have intermittent spells of lightheadedness, wooziness, nausea, shortness of breath, and has had some intermittent pleuritic chest discomfort. She tells me today of a pain in the right popliteal area that came up in the fairly immediate setting 4 days ago. There is some degree of orthostatic symptomatology. She has not noticed any bleeding, fevers, cough, urinary symptoms. She does not have abdominal pain and is eating though her appetite is somewhat decreased. It seems that her baby is thriving as best she can tell. OBJECTIVE Vitals reviewed: She has had some bradycardias with heart rates as low as 38 and on occasion has had tachypnea Odd Jobs Day Worker, my review: Exam: alert oriented skin warm dry color ok resps not labored lungs clear BSs heart regular abd soft nondistended nontender, bowel sounds present limbs warm, very mild bilateral ankle edema iv site ok TSH is normal, CBC unremarkable Objective: Vital Signs Temp Pulse Resp BP Pulse Ox 36.7 C 66 12 96/60 L 93 05/14/18 11:54 05/14/18 11:54 05/14/18 11:54 05/14/18 11:54 05/14/18 11:54 05/13/18 05/14/18 05/15/18 06:59 06:59 06:59 Output Total 800 500 Balance -800 -500 ICD10 Worksheet Patient Problems: Problems Problem Status Onset Dizziness Acute state Acute Shortness of breath Acute Symptomatic bradycardia Acute Delivery normal Acute Normal labor Acute
--- NOTE | 2018-05-14 17:05 | ECHO ---
[email or web address] [address] [address] Main: [phone] Fax: Transthoracic Echocardiogram Name: PANKAJ BARAKAT MR#: [id number] Study Date: 05/14/2018 Study Time: 08:20 AM Date of : 1980 Age: 38 year(s) Height: 170.2 cm (67 in.) Weight: 77.11 kg (170 lb.) BSA: 1.89 m2 Gender: Female Examination: Echo Indication: Presyncope, bradycardia, Shortness of breath, 4 days Image Quality: Adequate Contrast: Requested by: Judy Fragoso BP: 110 mmHg/78 mmHg Heart Rate: Rhythm: Indication: Presyncope, bradycardia, Shortness of breath, 4 days Procedure Staff Reducing Salon Attendant: Pameal Vanessa RD Reading Physician: Tone Mac MD Requesting Provider: Conclusions: Normal size left ventricle. Normal global systolic LV function. EF is 52 %. The mitral valve is normal in appearance and function. Mild mitral valve regurgitation is present. The aortic valve is tri-leaflet. There is no significant aortic valve regurgitation. No aortic valve stenosis is present. The pulmonary artery pressure is normal. Additional images of the interventricular septum will obtain and dictated in a second report. No old studies for comparison. Measurements: Chambers Valvular Assessment AV/MV Valvular Assessment TV/PV Normal Normal Normal Name Value Range Name Value Range Name Value Range Ao Josy (2D): 3.3 cm (1.4 cm-2.6 AV Vmax: 1.10 m/s (1 m/s-1.7 PV Vmax: 0.87 m/s (0.6 m/s-0.9 cm) m/s) m/s) IVSd (2D): 0.9 cm (0.6 cm-1.1 AV maxP mmHg ( - ) PV PGmax: 3 mmHg ( - ) cm) AV meanP mmHg ( - ) LVDd (2D): 5.3 cm (3.9 cm-5.3 TEENA (VTI): 2.6 cm ( - ) cm) MV E Vmax: 0.62 m/s ( - ) LVDs (2D): 3.8 cm (2.1 cm-4 MV A Vmax: 0.42 m/s ( - ) cm) MV E/A: 1.48 ( - ) LVPWd (2D): 0.7 cm ( - ) MV PHT: 0.070 s ( - ) LVOTd 2.1 cm 2.1 cm mm MVA (PHT): 3.1 s ( - ) LVEF (BP): 52 % (>=55 %) RVDd(2D): 2.5 cm (1.9 cm-3.8 cmmm) Patient: PANKAJ BARAKAT Study Date: 05/14/2018 Page 1 of 2 08:20 AM Continued Measurements: Chambers Valvular Assessment AV/MV Valvular Assessment TV/PV Name Value Name Value Name Value LADs: 3.2 cm MV DecTime: 222 m/s CVP (est.): 5 mmHg LADs Lon.0 cm MV E' Septal: 0.09 m/s LA Area: 15.1 cm2 MV E/E' Septal: 6.50 LA Volume: 38 ml MV E/E' Lateral: 3.90 LA Volume Index: 20.1 ml/m2 RA Area: 15.2 cm2 Additional Vessels Name Value Ao Ascendin.1 cm Inferior Vena Cava: 1.4 cm Findings: Left Ventricle: Normal size left ventricle. No LV hypertrophy. Normal global systolic LV function. EF is 52 %. No regional wall motion abnormality. Normal diastolic LV function. Right Ventricle: Normal size right ventricle. Normal RV function. Left Atrium: The left atrium is normal in size. Right Atrium: The right atrium is normal in size. Mitral Valve: The mitral valve is normal in appearance and function. Mild mitral valve regurgitation is present. No mitral stenosis is present. Aortic Valve: The aortic valve is tri-leaflet. There is no significant aortic valve regurgitation. No aortic valve stenosis is present. Tricuspid Valve: The tricuspid valve is normal in appearance and function. Trivial tricuspid valve regurgitation. The pulmonary artery pressure is normal. Pulmonic Valve: The pulmonic valve is normal in appearance and function. There is no pulmonic regurgitation seen. Aorta: The aorta is normal. Normal size aortic root measuring 3.3 cm. Normal size ascending aorta measuring 3.1 cm. IVC: The IVC is normal sized. Pericardium: No pericardial effusion. No pleural effusion. (No Signature Object) Patient: PANKAJ BARAKAT Study Date: 05/14/2018 Page 2 of 2 08:20 AM [id number]
--- NOTE | 2018-05-14 17:09 | ECHO ---
[email or web address] [place] [id number] Main: [phone] Fax: Transthoracic Echocardiogram Name: PANKAJ BARAKAT MR#: [id number] Study Date: 05/14/2018 Study Time: 04:02 PM Date of : 1980 Age: 38 year(s) Height: ( ) Weight: ( ) BSA: Gender: Female Examination: Limited Echo Indication: Limited follow up for possible vsd Image Quality: Contrast: Requested by: Judy Fragoso BP: / Heart Rate: Rhythm: Indication: Limited follow up for possible vsd Procedure Staff College Coach: Pamela Vanessa [facility] Reading Physician: Tone Mac MD Requesting Provider: Conclusions: An agitated saline study was performed and was negative for intracardiac shunting. No evidence of VSD. Measurements: Chambers Valvular Assessment AV/MV Valvular Assessment TV/PV Normal Normal Normal Name Value Range Name Value Range Name Value Range Continued Measurements: Findings: Left Atrium: An agitated saline study was performed and was negative for intracardiac shunting. Exam Comments: No evidence of VSD. (No Signature Object) Patient: PANKAJ BARAKAT Study Date: 05/14/2018 Page 1 of 1 04:02 PM [id number]
--- NOTE | 2018-05-14 17:27 | CPEKG ---
Heart Rate: 56 RR Interval: 1071 P-R Interval: 164 QRSD Interval: 94 QT Interval: 396 QTC Interval: 383 P Lasara: 20 QRS Lasara: 37 T Wave Lasara: 47 EKG Severity - NORMAL ECG - EKG Impression: SINUS RHYTHM Electronically Signed By: Linda Ling 15-May-2018 04:42:26
--- NOTE | 2018-05-14 20:58 | SOAPPROG ---
SOAP Progress Note Assessment/Plan: Assessment: 38 y/o PPD #4 s/p over intact perineum of viable male . Admitted secondary episodes of bradycardia, and pre-syncope Plan: These symptoms are not part of a normal post course. Mild episodes of anxiety, and hot flashes are common, but should not produce such dramatic symptoms. Appreciate the normal cardiac work up and I agree that PE is unlikely. Mildly elevated D dimer is normal in and immediately post . She has no evidence of mastitis, endometritis or infectious etiology for her symptoms. She does report significant gastric symptoms, epigastric pain , heartburn and nausea during and persistent now. She says she feels better after an anti-emetic. I feel it may be prudent to put her on scheduled H2 gregor to help with possible gastritis as a contributor of her symptoms and I will order this tonight. We will check on her and follow her closely after discharge. 05/14/18 20:59 Subjective: Pt is resting and feeling better now. She has had multiple episodes of dizziness, pre-syncope, and nausea since presentation to ED last night and today. The episodes have correlated with bradycardia, but so far a cardiac work up and venous doppler studies have all been wnl. She has some anxiety regarding these episodes, but she does not feel they are brought on by anxiety. She has had some minor episodes of hot flashes, and sweating, also not correlating with the episodes. She does report significant nausea and acid reflux during her , requiring Diclegis throughout. She has stomach pain and nausea when she is not feeling well today, and the Zofran has helped. Otherwise, she has only minor cramping of her uterus with breast feeding, she is having min lochia, is ambulating and voiding without difficulty. Her milk has come in normally and baby is nursing well. She has normal nipple soreness, but no erythema or pain suggestive of mastitis. She is having normal BM, and no issues with hemorrhoids. Objective: Vital Signs Temp Pulse Resp BP Pulse Ox 36.7 C 58 L 17 115/72 97 05/14/18 20:02 05/14/18 20:02 05/14/18 20:02 05/14/18 20:02 05/14/18 20:02 05/13/18 05/14/18 05/15/18 05:59 05:59 05:59 Intake Total 2049 Output Total 800 1050 Balance -800 1000 - Time Spent With Patient Time Spent With Patient: 20 minutes Physical Exam - Physical Exam General Appearance: WD/WN, alert, no apparent distress Neck: non-tender, full range of motion, supple Respiratory: chest non-tender, lungs clear, normal breath sounds Cardiac/Chest: regular rate, rhythm Abdomen: normal bowel sounds, other (UFF U-2, non tender) Pelvic Exam: deferred Extremities: swelling (no), Blake's sign (neg) ICD10 Worksheet Patient Problems: Problems Problem Status Onset Dizziness Acute state Acute Shortness of breath Acute Symptomatic bradycardia Acute Delivery normal Acute Normal labor Acute
[2018-05-14] MEDS: FAMOTIDINE 20 MG TAB PO SCH (22:13)
[2018-05-15] MEDS: ONDANSETRON 4 MG/2 ML VIAL IVP PRN ×2 (02:15→06:18)
[2018-05-15] MEDS ORDERED: COSYNTROPIN 0.25 MG/2 ML SYRINGE IVP ONE (06:00)
[2018-05-15] MEDS: FAMOTIDINE 20 MG TAB PO SCH ×2 (11:28→19:27)
[2018-05-15] MEDS: IRON POLYSAC/IRON HEME 28 MG TAB PO SCH (11:31)
[2018-05-15] MEDS: ACETAMINOPHEN 325 MG TAB PO PRN ×2 (14:39→19:27)
--- NOTE | 2018-05-15 18:16 | GCON ---
[f rep st] CONSULTATION DATE OF CONSULTATION: 05/15/2018 CHIEF COMPLAINT: We have been asked by Dr. Swain to evaluate the patient with a chief complaint of bradycardia. HISTORY OF PRESENT ILLNESS: The patient is a 38-year-old female with no significant past medical his tory, who was admitted to the hospital on 05/14/2018, generally feeling poorly. The patient is postp artum day #4 after delivery of a healthy infant. The patient denies complications with her delivery. The patient states that she has had several episodes where she has felt lightheaded and dizzy, as i f she might faint. These episodes are associated with symptoms of nauseousness, as well as a cool se nsation extending from her abdomen up into her chest. The cool sensation is also associated with a c old, sweaty type feeling. There are no obvious precipitating or relieving factors. While in the [facility], she has been monitored on telemetry. Telemetry monitoring demonstrates sinus rhythm with hear t rates between the 40s and 120s. The patient denies a previous cardiovascular history. The patient was previously active, participating in triathlons, but has not been competitively athletic over the last 2 years after the of her first child. The patient denies symptoms of chest pain, orthopn ea, and PND. No palpitations. The patient has been eating and drinking appropriately. PAST MEDICAL HISTORY: None. MEDICATIONS: None. ALLERGIES: Penicillin. SOCIAL HISTORY: Patient is . She lives with her . She has 2 children. She does not smoke. FAMILY HISTORY: Notable for coronary artery disease at an early age onset. REVIEW OF SYSTEMS: Ten-point review of systems is negative, except as noted in HPI. PHYSICAL EXAMINATION: GENERAL: The patient is resting comfortably in bed. She does not appear to b e in acute distress. VITAL SIGNS: Temperature is afebrile. Pulse is 84, blood pressure 110/68. Re spiratory rate is 18. SaO2 is 95% on room air. HEENT: Normocephalic, atraumatic. Extraocular musc les intact. NECK: No JVD. No bruits. LUNGS: Clear to auscultation bilaterally. CARDIOVASCULAR: Regular rate and rhythm. S1, S2. No murmurs, rubs, or gallops appreciated. ABDOMEN: Soft, nonten abigail. Normoactive bowel sounds. No hepatosplenomegaly noted. SKIN: No evidence of rashes. EXTREMI TIES: No edema. NEURO: Patient is awake, alert, and oriented x3. LABORATORY DATA: White blood cell count is 10.32. Hemoglobin is 12.6. Hematocrit is 37.5. Platele t count is 290. Sodium 142, potassium 3.8, chloride 110, CO2 19, BUN 14, creatinine 0.7. TSH is wit hin normal limits at 1.49; a.m. cortisol was 12.1. Cosyntropin stim was 32.4. D-dimer is elevated a t 0.56. EKG demonstrates sinus rhythm, incomplete right bundle branch block. Echocardiogram demonst rates normal left ventricular size and systolic function, with no significant valvular abnormalities. ASSESSMENT AND PLAN: The patient is a 38-year-old female with: Presyncope. The patient presents with symptoms of lightheadedness and dizziness after delivering a h ealthy approximately 4 days previously. The episodes of lightheadedness and dizziness are ass ociated with a sinus bradycardia in the 40s. Telemetry monitoring demonstrates sinus rhythm with hea rt rates between the 40s and 120s, making sick sinus syndrome a less likely explanation for her sympt oms. Echocardiogram demonstrates normal left ventricular size and systolic function, with no signifi cant valvular abnormalities. The patient does report symptoms of nauseousness, a cold, clammy sensat ion during these episodes of presyncope. Suspect this is vagally mediated as opposed to an arrhythmi a or sick sinus syndrome. Will try to identify the underlying precipitant and see if it can be remov ed. In the meantime, we will focus on hydration to try to mitigate symptoms. /[id number]/MODL
--- NOTE | 2018-05-15 19:28 | HOSPPROG ---
Hospitalist Progress Note Assessment/Plan: DIAGNOSES: -recurrent episodes of nausea, lightheadedness, and feeling of near syncope without any decreases in blood pressure and without any orthostasis -subjectively chest pain and dyspnea -right leg pain in the popliteal area -bradycardia occurring intermittently during some of her spells At this point this syndrome sounds to me most likely to be a vagally induced syndrome, but I am not certain what the trigger for this is. I do not think that she is at high risk for any significant events at this point. I do not think that there is really much we can do for this other than to keep her well hydrated, treat her nausea aggressively, encourage ongoing ambulation which she is doing, though it may potentially be helpful to consider things such as salt supplements or Godwin stockings over time. At the patient's request I asked for Dr. Mac from Cardiology to visit her and I reviewed the case in detail with him before and after his visit with her. Dr. Mac is in agreement that this is likely vagally mediated, and that there does not appear to be any significant cardiac etiology directly. PLANS: -as patient remains severely symptomatic will continue to observe her here and make sure she is staying well hydrated, treat nausea which we have been doing intravenously here -will review with Gynecology SUBJECTIVE: Continues have intermittent spells of lightheadedness, wooziness, nausea, shortness of breath, and has had some intermittent pleuritic chest discomfort. She tells me today of a pain in the right popliteal area that came up in the fairly immediate setting 4 days ago. There is some degree of orthostatic symptomatology. She has not noticed any bleeding, fevers, cough, urinary symptoms. She does not have abdominal pain and is eating though her appetite is somewhat decreased. It seems that her baby is thriving as best she can tell. OBJECTIVE Vitals reviewed: Heart rate better today despite ongoing symptoms, otherwise normal vitals Social Media Specialist, my review: All sinus rhythm Exam: alert oriented skin warm dry color ok resps not labored lungs clear BSs heart regular abd soft nondistended nontender, bowel sounds present limbs warm, very mild bilateral ankle edema iv site ok Laboratory data: Normal results on Cortrosyn stim test today I have reviewed results of her echocardiogram with Dr. Tone Mac and this shows excellent cardiac function and dimensions, no significant valvular abnormalities I reviewed her Doppler ultrasound images which show no evidence of DVT Objective: Vital Signs Temp Pulse Resp BP Pulse Ox 36.8 C 62 18 103/69 96 05/15/18 11:51 05/15/18 15:56 05/15/18 15:56 05/15/18 15:56 05/15/18 15:56 05/14/18 05/15/18 05/16/18 06:59 06:59 06:59 Intake Total 2600 1500 Output Total 800 1950 900 Balance -800 650 600 ICD10 Worksheet Patient Problems: Problems Problem Status Onset Dizziness Acute state Acute Shortness of breath Acute Symptomatic bradycardia Acute Delivery normal Acute Normal labor Acute
--- NOTE | 2018-05-15 20:47 | SOAPPROG ---
SOAP Progress Note Assessment/Plan: Assessment: 38 yo ppd# 4 s/p recurrent symptomatic bradycardia breast feeding Plan: management per hospitalist and pastry decorator 05/15/18 20:43 Subjective: patient overall is doing well with the exception of continued episodes of symptomatic bradycardia. breast feeding is going well. pumping. minimal lochia. denies headache and changes in vision. mood is good. appropriately nervous about recurrent symptoms but is otherwise in good spirits. Objective: Vital Signs Temp Pulse Resp BP Pulse Ox 36.6 C 71 16 122/78 H 98 05/15/18 19:45 05/15/18 19:45 05/15/18 19:45 05/15/18 19:45 05/15/18 19:45 05/14/18 05/15/18 05/16/18 05:59 05:59 05:59 Intake Total 2600 1500 Output Total 800 1950 1200 Balance -800 650 300 Physical Exam - Physical Exam General Appearance: WD/WN, alert, no apparent distress Neck: non-tender, full range of motion, supple Respiratory: chest non-tender, lungs clear, normal breath sounds Cardiac/Chest: normal peripheral pulses, regular rate, rhythm Abdomen: normal bowel sounds, non-tender, other (fundus firm and non tender) Skin: normal color, warm/dry Extremities: normal range of motion, non-tender, normal inspection, normal capillary refill Neuro/Psych: no motor/sensory deficits, alert, normal mood/affect, oriented x 3 ICD10 Worksheet Patient Problems: Problems Problem Status Onset Dizziness Acute state Acute Shortness of breath Acute Symptomatic bradycardia Acute Delivery normal Acute Normal labor Acute
[2018-05-16] MEDS: ONDANSETRON 4 MG/2 ML VIAL IVP PRN ×2 (01:03→06:17)
[2018-05-16] MEDS: IRON POLYSAC/IRON HEME 28 MG TAB PO SCH (09:15)
[2018-05-16] MEDS: FAMOTIDINE 20 MG TAB PO SCH (09:15)
--- NOTE | 2018-05-16 17:04 | SOAPPROG ---
SOAP Progress Note Assessment/Plan: 1. Pre-syncope - Pt presents with symptoms of pre-syncope in the katt- period. Episodes initially associated with sinus bradycardia, however, subsequent episodes associated with sinus rhythm. Echocardiogram with no significant structural heart disease. Do not suspect SSS as patient has normal heart rate variability (40s to 120s). TSH and cortisol wnl. Episodes associated with nausea and cold sensation. Suspect vegal etiology. 2. Abdominal pain - Pt reports epigastric and R shoulder pain with this mornings episode of pre-syncope. ? abdominal pain as trigger for vegal event. Will discuss imaging options with Dr. Swain Subjective: Pt with episode of pre-syncope last evening and this am. Telemetry monitoring with no significant arrhythmias associated with the events. Pt reports epigastric and R shoulder pain with the event Pt also reports nausea and cold sensation Objective: Vital Signs Temp Pulse Resp BP Pulse Ox 36.7 C 83 16 112/63 94 05/16/18 12:00 05/16/18 12:00 05/16/18 12:00 05/16/18 12:00 05/16/18 12:00 05/15/18 05/16/18 05/17/18 05:59 05:59 05:59 Intake Total 2600 1500 400 Output Total 1950 1500 100 Balance 650 0 300 Physical Exam - Physical Exam General Appearance: alert, no apparent distress Respiratory: lungs clear Cardiac/Chest: regular rate, rhythm Abdomen: soft, other (tender to palpation in the epigastrium) Skin: normal color Neuro/Psych: oriented x 3 ICD10 Worksheet Patient Problems: Problems Problem Status Onset Dizziness Acute state Acute Shortness of breath Acute Symptomatic bradycardia Acute Delivery normal Acute Normal labor Acute
[2018-05-16 17:34] VITALS: BP 102/67
--- NOTE | 2018-05-16 20:50 | PDDCSUM ---
Discharge Summary Discharge Summary: DISCHARGE DIAGNOSES: -multiple symptoms suggesting possible near-syncope or vagal overactivity in the setting, of unknown certain etiology -recent delivery 4 days before admission of a healthy baby boy a with no concerning findings during the peripartum. At delivery -epigastric discomfort of uncertain etiology associated with nausea and vomiting CONSULTANTS: Dr. Tone Mac cardiology Dr. Li Avery of [facility] PROCEDURES: Echocardiogram including bubble study with no concerning abnormalities Doppler venous ultrasound of legs showing no DVT HOSPITAL COURSE SUMMARY: This patient presented to the hospital 4 days after delivering a healthy baby boy with no known complications of her her peripartum. Her symptoms included episodes of lightheadedness, a feeling of near syncope, a vague subjective sensation of dyspnea, nausea, and intermittently these were associated with some mild ache in the epigastrium with radiation to the right scapula. There was no pleuritic pain, tachycardia, hypoxemia, or anything else that specifically suggested pulmonary embolism. There had been some ache in the right popliteal fossa but an ultrasound showed no DVT in that leg. She was tested for thyroid function and this was normal and a Cortrosyn stim test was normal so there was not felt to be an endocrine cause of the symptoms. There was some bradycardia noted on cardiac monitoring, which was a sinus bradycardia. This was primarily noted as I resting heart rate in the 40s to low 50s during sleep. However at other time she did have bradycardia, but we were not able to demonstrate any correlation between or heart rate and her symptoms. It was felt that likely her overall picture involved some significant increase in vagal tone though the etiology for this vagal tone could not be demonstrated. An echocardiogram showed no cardiac abnormalities, and there was no evidence of any abnormal changes in the aorta. There was no evidence of bleeding or infection. It was notable that the patient did have symptomatic relief with Zofran not only for nausea but some of her other symptoms. Because of some her abdominal pain and nausea that occurred on occasion it was considered that an abdominal ultrasound might be done to look for gallstones. However as the patient is feeling better at this time and has had normal exams we will plan on doing that as an outpatient. Is recommended at this time the patient main adequate hydration, get up slowly after lying in bed for sleep or lying supine otherwise. PENDING TEST RESULTS: None MEDICATION CHANGES: Addition of p.r.n. Zofran for nausea FOLLOW-UP PLAN: With Dr. Avery in [facility] clinic as previously planned With Dr. Bernarda Villanueva within 1 week in primary care clinic She is to be scheduled for an outpatient abdominal ultrasound to assess for possible gallstones Greater than 35 minutes bedside and care coordination time today
== END 2018-05-16 17:28 | disposition home or self-care (01) ==
LOC: F2W 04:16
PROVIDERS: ADMIT Family Medicine; ATTEND Internal Medicine
DX: O90.89 Other complications of the puerperium, not elsewhere classified (principal); O99.03 Anemia complicating the puerperium; O99.284 Endocrine, nutritional and metabolic diseases complicating childbirth; R55 Syncope and collapse; R06.00 Dyspnea, unspecified; R00.1 Bradycardia, unspecified; R10.13 Epigastric pain; D64.9 Anemia, unspecified; E88.09 Other disorders of plasma-protein metabolism, not elsewhere classified; R11.2 Nausea with vomiting, unspecified; M79.604 Pain in right leg; M25.511 Pain in right shoulder; Z82.49 Family history of ischemic heart disease and other diseases of the circulatory system; Z88.0 Allergy status to penicillin
CPT/HCPCS: 71046; 93005; 93306; 93308; 93971; 99285; G0378; 84484-PO; J0834; J2405

== ENCOUNTER → 2018-05-22 | Outpatient (CLI) | payer OTHER | LOC: BMCIMAGING 07:18 | PROVIDERS: ATTEND Internal Medicine | DX: K83.8 Other specified diseases of biliary tract (principal) ==

== ENCOUNTER → 2018-05-25 | Outpatient (CLI) | payer OTHER ==
[~2018-05-25] MED LIST: IOPAMIDOL (ISOVUE 370) 100 ML BTL IV ONE
== END ==
LOC: FIMAGING 16:49
PROVIDERS: ATTEND Internal Medicine
DX: R06.02 Shortness of breath (principal); R55 Syncope and collapse; R00.1 Bradycardia, unspecified
CPT/HCPCS: Q9967

== ENCOUNTER → 2018-11-01 | Outpatient (CLI) | payer OTHER | LOC: FCPNEURO 21:00 | PROVIDERS: ATTEND Student in an Organized Health Care Education/Training Program | DX: G47.33 Obstructive sleep apnea (adult) (pediatric) (principal) ==

== ENCOUNTER → 2018-11-16 | Outpatient (CLI) | payer OTHER ==
--- NOTE | 2018-11-19 13:37 | CPEEG ---
ELECTROENCEPHALOGRAM. DATE OF STUDY: 11/16/2018 DATE OF INTERPRETATION: 11/19/2018. DATE OF STUDY: 11/16/2018. INTERPRETATION: Essentially normal EEG during wakefulness and sleep. There were no definite potenti ally epileptogenic abnormalities present during the awake or sleep recordings. REPORT: This EEG contains 10 Hz alpha activity to the posterior head regions. There was no abnormal activation at rest, during photic stimulation, or hyperventilation. The patient became drowsy and f ell asleep during the study. During drowsiness, there was moderate amplitude theta frequency activit y over the bilateral posterior temporal head regions, maximal right. This can be a normal drowsy aida iant. There was no abnormal epileptiform activation with drowsiness, sleep, or during times of arous al. /[id number]/MODL
== END ==
LOC: FCPNEURO 11:40
PROVIDERS: ATTEND Psychiatry & Neurology Neurology
DX: R94.01 Abnormal electroencephalogram [EEG] (principal)